=== PATIENT | female | born 1990 | race Caucasian/White ===

== ENCOUNTER 2017-09-29 10:19 | Emergency (ER) | payer OTHER ==
--- NOTE | 2017-09-29 11:48 | PD ---
HPI Chief Complaint left abdominal cramping and spotting Date Seen: Sep 29, 2017 Time Seen: 11:00 Travel History International Travel<30 Days: No Contact w/Intl Traveler<30Days: No Known Affected Area: No History of Present Illness HPI Ms Hendricks is a 27YO at 21/5 weeks with limited PNC (last seen in July) who presents to the OB ED with left-side abdominal pain and cramping since a fall while ascending the stairs yesterday afternoon. The pain/cramping was not acute at first but became 7/10 on pain scale last night and kept the pt from sleeping. Also, pt has developed lower back and right leg achy pain which pt feels are 8/10 on pain scale. This morning the pt has noted some spotting with mostly mucous discharge per vagina. Pt has no medicine allergies and was taking PNV and folic acid; however, ran out of vitamins. Pt last seen in [place], [place] , before moving here in July and has had trouble establishing care since then. BP on admit was 151/61 and repeat 144/52. Pt denies CP, N/V, DVT pain, but says she is sometimes SOB and has had some diarrhea and LE leg swelling. Weeks Gestation: 21 Para: 0 : 1 Miscarriage: 0 : 0 History Past Medical History Narrative Medical morbid obesity seasonal allergies Medical History: Denies Significant Hx Obstetric History Obstetric History none Past Surgical History Narrative Surgical right ankle tendon repair 2009 Family History Narrative Family History Father - intracranial hemorrhage/CVA, EtOH, HTN Mother - living, HTN, palpitations Social History Alcohol Use: Yes (before she knew she was ) Tobacco Use: No Substance Abuse: No Allergies-Medications (Allergen,Severity, Reaction): Coded Allergies: No Known Allergies (Unverified , 09/29/17) Narrative Medication PNV and Folic acid Review of Systems General / Constitutional: No: Fever, Chills Eyes: No: Diploplia, Blurred Vision, Visual changes HENT: No: Headaches, Lightheadedness Cardiovascular: Edema, No: Chest Pain or Discomfort, Palpitations, Syncope Respiratory: Short of Breath (occasionally) Gastrointestinal: Diarrhea, Abdominal Pain (left sided), No: Nausea, Vomiting, Constipation Genitourinary: Urgency, Dysuria, Pelvic Pain (left sided), Vaginal Bleeding ( spotting with mucous) Musculoskeletal: Edema, Pain (achy pain in lower back and right leg since fall yesterday) Skin: No Rash Neurologic: No: Weakness, Dizziness, Syncope Physical Exam Narrative GENERAL: Well-nourished, morbidly obese patient lying in bed in NAD. SKIN: Warm and dry. No rashes or lesions. HEAD: Normocephalic and atraumatic. EYES: No scleral icterus. No injection or drainage. EOMI. ENT: No nasal drainage noted. Mucous membranes pink. Airway patent. NECK: Supple, trachea midline. No JVD or lymphadenopathy. CARDIOVASCULAR: Regular rate and rhythm without murmur, gallop, or rub. Normal cap refill. RESPIRATORY: Breath sounds equal bilaterally in all lung lorenzo. No accessory muscle use. ABDOMEN/GI: Abdomen soft, non-tender, bowel sounds present, no rebound, no guarding Gravid to 21/22 weeks size Fundal Height: [-] GENITOURINARY: Cervix: [-] Dilatation: [-] Effacement: [-] Station: [-] Presentation: [-] Membranes: intact Uterine Contractions: no FHT's: Category: [-] Baseline: [-] Reactive: [-] Variability: [-] Decels: [-] EXTREMITIES: No cyanosis or edema. BACK: Nontender without obvious deformity. No CVA tenderness. NEUROLOGICAL: Awake and alert. Motor and sensory grossly within normal limits. Five out of 5 muscle strength in all muscle groups. Normal speech. Data Data Orders Orders Vital Signs (Adult) .ON ADMISSION (09/29/17 11:20) ^ Labor Status (09/29/17 11:20) ^ Non Stress Test (09/29/17 11:20) Diet Liquid (09/29/17 Lunch) ^ Hydration (09/29/17 11:20) Cbc No Diff, Includes Plts (09/29/17 11:20) Us Ob Pelvis >14 Wks Fetus (09/29/17 ) Fibrinogen (09/29/17 11:20) MDM Narrative Course / MDM 27YO at 21/5 weeks with no PMHx, morbidly obese, presents to ED with fall yesterday on stairs and isolated systolic HTN at 151/61 and repeat 144/52. Pt has some spotting with mucous discharge this morning. Pt has had no PNC since July due to move. heart tracing reassuring. OB US shows no evidence of clotting or abruption. PLAN: Rule out placental abruption -OB US with no s/s of abruption; pt not bleeding or having discharge currently -Follow up fibronectin and CBC as mother is Rh+ -Discharge home Pt discussed with Dr Montes De Oca Diagnosis Diagnosis: Primary Impression: Pelvic pain affecting in second trimester, antepartum Additional Impressions: 21 weeks gestation of Status post fall Hypertension affecting in second trimester Disposition: DISCHARGE HOME Condition: Stable Jarrell Flores MD R1 Sep 29, 2017 11:48
[2017-09-29 13:00] LABS: HEMATOCRIT 36.4 % (35.0-46.0); MEAN CORPUSCULAR HEMOGLOBIN 30.3 PG (27.0-34.0); PLATELET COUNT 174 TH/MM3 (150-450); RED BLOOD COUNT 4.09 MIL/MM3 (4.00-5.30); RED CELL DISTRIBUTION WIDTH 14.6 % (11.6-17.2); REVIEW FLAG FINAL; WHITE BLOOD COUNT 7.3 TH/MM3 (4.0-11.0)
[2017-09-29] MEDS ORDERED: SE-NCHW CHEW (13:01)
--- NOTE | 2017-09-29 13:03 | HHI.DCPOC ---
Discharge Care Plan Report Symptoms to Your Doctor -Temperature above 100.5 degrees -Redness, of incision or excessive or foul smelling drainage -Unusual pain or calf pain -Increased vaginal bleeding -Painful or difficulty urinating -Feelings of extreme sadness or anxiety after 2 weeks Goals to Promote Your Health * To prevent worsening of your condition and complications, please take your vitamins. * To maintain your health at the optimal level, please follow up with your OB/ [facility] in a week. Directions to Meet Your Goals Take your medications as prescribed Follow your dietary instruction Follow activity as directed Ensure plenty of rest for recovery Drink fluids for hydration Keep your appointments as scheduled Take your immunizations and boosters as scheduled If your symptoms worsen call your PCP, if no PCP go to Urgent Care Center or Emergency Room Smoking is Dangerous to Your Health. Avoid second hand smoke Call the 24-hour crisis hotline for domestic abuse at Jarrell Flores MD R1 Sep 29, 2017 13:03
== END 2017-09-29 13:07 | disposition home or self-care (01) ==
LOC: HOBED 10:19
DX: O26.892 Other specified pregnancy related conditions, second trimester (principal); R10.2 Pelvic and perineal pain; O16.2 Unspecified maternal hypertension, second trimester; W10.9XXA Fall (on) (from) unspecified stairs and steps, initial encounter; O26.852 Spotting complicating pregnancy, second trimester; M54.5 Low back pain; M79.604 Pain in right leg; R06.02 Shortness of breath; R19.7 Diarrhea, unspecified; R22.40 Localized swelling, mass and lump, unspecified lower limb; Z3A.21 21 weeks gestation of pregnancy
CPT/HCPCS: 36415; 76805; 85027; 99284

== ENCOUNTER 2017-11-04 15:08 | Emergency (ER) | payer MEDICAID, OTHER ==
[~2017-11-04 15:08] MED LIST: SE-NCHW CHEW
--- NOTE | 2017-11-04 16:05 | PD ---
HPI Chief Complaint dizziness, headache, nausea Date Seen: Nov 04, 2017 Travel History International Travel<30 Days: No Contact w/Intl Traveler<30Days: No History of Present Illness HPI Ms. Hendricks is a 27 yo G1 at 26 weeks GA (ESMER 02/04/2018) patient of [facility] who presents with headaches, dizziness, nausea, and tiredness. Patient states that these symptoms first started a few days ago. Patient began having a headache at that time along with lightheadedness; these symptoms initially subsided, but she began having a headache again last night which has not resolved so patient sought care today. Patient describes current headache as being frontal in nature and not remitting for greater than 12 hours despite the use of Tylenol. Patient states that she has some pain behind her eyes but denies any visual blurriness. Patient does not report any extremity numbness/ tingling/weakness. Patient does not report associated fevers states that she occasionally feels chills. Patient states that she occasionally sees spots but this is not a new finding associated with headaches. She does not report any history of high blood pressure; she has a family history of high blood pressure. Patient does not report any shortness of breath or chest pain. Patient does not report any dysuria. Patient has nausea but this is not associated with abdominal pain. Normal bowel movements. Patient reports normal movement. Patient does not report any vaginal bleeding. Patient states that she has occasional vaginal discharge which is "slimy" and "yellow" but that this is chronic and it is not associated with any vaginal pain. Patient is not concerned about the possibility of having STDs. Patient states that she has had a benign course while getting care at [facility]. Per EMR review, patient had ultrasound 10/09/2017 which confirmed ESMER. Biloma trees were consistent. No abnormality seen. Anterior placenta. labs reviewed, A+ with negative antibody screen. No anemia. No blood-borne pathogens. One hour GGT 97. Weeks Gestation: 26 Para: 0 : 1 History Past Medical History Medical History: Denies Significant Hx Obstetric History Obstetric History [facility]- last was 2 weeks ago. labs looked good. glucose passed. US- no proble ms Past Surgical History Narrative Surgical R ankle- ligament repair Family History Narrative Family History FH HTN, DM, stroke Social History Alcohol Use: No Tobacco Use: No Substance Abuse: No Allergies-Medications (Allergen,Severity, Reaction): Coded Allergies: No Known Allergies (Unverified , 10/26/17) Home Meds Active Scripts Vit W/ Ferrous Fumara Chew (Se-Jeremiah 19 29-1 mg Chew) 1 Chew, 1 TAB CHEW DAILY for for 30 Days, #30 EA 0 Refills Prov:Jarrell Flores MD R1 09/29/17 Review of Systems General / Constitutional: Chills, No: Fever Eyes: No: Blurred Vision HENT: No: Headaches Cardiovascular: No: Chest Pain or Discomfort Respiratory: Short of Breath (occasional) Gastrointestinal: Nausea, No: Vomiting, Abdominal Pain Genitourinary: No: Urgency, Frequency Musculoskeletal: No: Weakness Skin: No Rash, No Itching Neurologic: Dizziness, No: Weakness, Syncope Physical Exam BP 120's/50's HR wnl Narrative GENERAL: Well-nourished, well-developed patient. SKIN: Warm and dry. HEAD: Normocephalic EYES: No scleral icterus. No injection or drainage. EOM grossly intact. PERRLA ENT: Normal oral mucosa NECK: no appreciated lymphadenopathy or thyromegaly CARDIOVASCULAR: Regular rate and rhythm without murmurs; normal perfusion RESPIRATORY: CTAB; normal rate EXTREMITIES: No cyanosis or edema. BACK: Nontender without obvious deformity. No CVA tenderness. NEUROLOGICAL: Awake and alert. Motor and sensory function grossly within normal limits. ABDOMEN/GI: Abdomen soft, non-tender, bowel sounds present Gravid GENITOURINARY: Uterine Contractions: None FHT's: Category: 1 Baseline: 130's Reactive: Y Variability: Mod Decels: Mod Data Data Vital Signs Reviewed: Yes Orders Orders Vital Signs (Adult) .ON ADMISSION (11/04/17 15:36) ^ Labor Status (11/04/17 15:36) Urinalysis - C+S If Indicated (11/04/17 15:36) ^ Non Stress Test (11/04/17 15:36) Diet Liquid (11/04/17 Dinner) Cbc No Diff, Includes Plts (11/04/17 15:36) Comprehensive Metabolic Panel (11/04/17 15:36) Uric Acid (11/04/17 15:36) MDM Medical Record Reviewed: Yes Narrative Course / MDM Ms. Hendricks is a 27 yo G1 at 26 weeks GA (ESMER 02/04/2018) patient of [facility] who presents with headaches, dizziness, nausea, and tiredness -Cat 1 rhythm -Normotensive; reported SBP 143 -Physical exam benign - records reassuring Assessment/Plan: -Will check CBC, CMP, UA to assess for suggestion of hypertensive disorders during and rule-out infectious etiology of symptoms -Will continue to monitor VS and EFM Interval: CBC - Hgb 11.7, PLT 182 CMP- Na 140, K 3.6, Cr 0.52, Uric acid 4.7 UA- 30 protein -Cat 1 rhythm; no contractions on CTG -Normotensive Updated Plan: -Patient reassured that her symptoms, while of unclear etiology, are seemingly benign and not suggestive of hypertension or any concerning etiology. Patient instructed to rest at home with frequent hydration and to use Tylenol PRN for headaches. Patient agrees to follow-up with her OBGYN with in week but that she will return to ED with any worsening symptoms. Diagnosis Diagnosis: Primary Impression: Headache in Disposition: 01 DISCHARGE HOME Condition: Stable Patient Instructions: General Instructions Jacob Dinero MD, R3 Nov 04, 2017 16:05
[2017-11-04 17:02] LABS: HEMATOCRIT 34.3 % (35.0-46.0); HEMOGLOBIN 11.7 GM/DL (11.6-15.3); MEAN CELL VOLUME 88.8 FL (80.0-100.0); MEAN CORPUSCULAR HEMOGLOBIN 30.3 PG (27.0-34.0); MEAN CORPUSCULAR HGB CONC 34.1 % (32.0-36.0); MEAN PLATELET VOLUME 8.7 FL (7.0-11.0); PLATELET COUNT 182 TH/MM3 (150-450); RED BLOOD COUNT 3.86 MIL/MM3 (4.00-5.30); RED CELL DISTRIBUTION WIDTH 15.2 % (11.6-17.2); WHITE BLOOD COUNT 7.6 TH/MM3 (4.0-11.0)
[2017-11-04 17:13] LABS: AMORPHOUS SEDIMENT, URINE MANY; BACTERIA, URINE OCC /hpf; BILIRUBIN, URINE NEG (NEG); BLOOD, URINE NEG (NEG); GLUCOSE,URINE NEG (NEG); KETONE, URINE NEG (NEG); MUCUS URINE FEW /lpf (OCC); NITRITE,URINE NEG (NEG); SQUAMOUS EPITHELIAL CELL URINE 12 /hpf (0-5); URINE COLOR YELLOW (YELLW/STRAW); URINE LEUKOCYTE ESTERASE TRACE (NEG)
[2017-11-04 17:28] LABS: ALBUMIN 2.9 GM/DL (3.4-5.0); ALT (GPT) 48 U/L (10-53); AST (GOT) 20 U/L (15-37); BICARBONATE 21.8 MEQ/L (21.0-32.0); BLOOD UREA NITROGEN 10 MG/DL (7-18); CALCIUM 8.2 MG/DL (8.5-10.1); CHLORIDE 110 MEQ/L (98-107); CREATININE 0.52 MG/DL (0.50-1.00); GLOMERULAR FILTRATION RATE 140 ML/MIN (>89); GLUCOSE,RANDOM 76 MG/DL (74-106); SODIUM (NA) 140 MEQ/L (136-145)
[2017-11-04 17:31] LABS: ALKALINE PHOSPHATASE 112 U/L (45-117); TOTAL BILIRUBIN ADULT 0.2 MG/DL (0.2-1.0); TOTAL PROTEIN 6.9 GM/DL (6.4-8.2)
== END 2017-11-04 17:56 | disposition home or self-care (01) ==
LOC: HOBED 15:08
DX: O26.892 Other specified pregnancy related conditions, second trimester (principal); R51 Headache; R11.0 Nausea; R42 Dizziness and giddiness; Z3A.26 26 weeks gestation of pregnancy
CPT/HCPCS: 59025; 80053; 81001; 84550; 85027

== ENCOUNTER → 2017-12-30 | Emergency (ER) | payer MEDICAID ==
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
[2017-12-30 19:15] VITALS: RESP 18
[2017-12-30 19:45] VITALS: RESP 18
[2017-12-30 20:25] VITALS: BP 127/80; PULSE 64
[2017-12-30 20:26] VITALS: RESP 18
[2017-12-30 21:00] VITALS: RESP 18
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
== END | disposition home or self-care (01) ==
LOC: HOBED 17:41
DX: Z04.1 Encounter for examination and observation following transport accident (principal)
CPT/HCPCS: 59025